=== PATIENT | male | born 1945 | race Caucasian/White ===

== ENCOUNTER 2017-12-12 12:50 | Emergency (ER) | payer MEDICARE ==
[2017-12-12] MEDS ORDERED: NS 0.9% 1000 ML* 2,000 ML IV ONE (13:05)
[2017-12-12] MEDS ORDERED: Ondansetron INJ* 2 MG/ML VIAL IV ONE (13:05)
--- NOTE | 2017-12-12 13:11 | ED ---
Syncope/Near Syncope - HPI Summary HPI Summary: This is nita Wright documenting for attending Teo Padilla MD. This patient is a 72 year old M [facility] accompanied by a male with a chief complaint of syncope that occurred around 11:00AM. Pt had LOC while the nursing area at the [facility] was measuring his vitals. Patient reports decreased appetite, watery diarrhea, dizziness, light-headedness, CORDOBA, nausea, seeing spots, shaking, and chills. Patient denies abd pain, bloody stool, or fever. Pt ate breakfast this morning, showered, did laundry, and attended two group classes. Pt reports he recently changed the timing of his medications. Pt has been sober for a month and a half. PMHx EtOH abuse. - History Of Current Complaint Chief Complaint: EDSyncope Time Seen by Provider: 12/12/17 12:55 Hx Obtained From: Patient Onset/Duration: Sudden Onset Timing: Minutes Context: Witnessed, Loss Of Consciousness Activity At Onset: Other - standing after rest Alleviating Factor(s): Spontaneous Resolution Associated Signs And Symptoms: Decreased Oral Intake, Diarrhea, Dizzy, Headache , Lightheadedness, Vomiting PMH/Surg Hx/FS Hx/Imm Hx History: Denies: Hx Dialysis Psychiatric History: Reports: Hx Substance Abuse - EtOH - Family History Known Family History: Positive: Other - EtOH abuse - Social History Alcohol Use: None Review of Systems Positive: Chills. Negative: Fever Eyes: Other - seeing spots Negative: Cough Positive: Vomiting, Diarrhea, Nausea. Negative: Abdominal Pain Negative: hematuria Positive: Headache, Weakness, Syncope All Other Systems Reviewed And Are Negative: Yes Physical Exam - Summary Physical Exam Summary: Appearance: Well-appearing, Well-nourished, lying in bed comfortably Skin: Warm, dry, no obvious rash Eyes: sclera anicteric, no conjunctival pallor ENT: mucous membranes moist, pharynx appears normal Neck: Supple, nontender Respiratory: Clear to auscultation, no signs of respiratory distress Cardiovascular: Normal S1, S2. No murmurs. Normal distal pulses in tibial and radial bilaterally. Abdomen: Soft, nontender, normal active bowel sounds present Musculoskeletal: Normal, Strength/ROM Intact Neurological: A&Ox3, awake and alert, mentation is normal, speech is fluent and appropriate Psychiatric: affect is normal, does not appear anxious or depressed Triage Information Reviewed: Yes Vital Signs Reviewed: Yes Diagnostics - Laboratory Result Diagrams: 12/12/17 13:13 12/12/17 13:13 Lab Statement: Any lab studies that have been ordered have been reviewed, and results considered in the medical decision making process. - EKG 13:09 Cardiac Rate: NL EKG Rhythm: Sinus Rhythm - 63 bpm EKG Interpretation: P waves, QRS complex, and T waves WNL. Int nml. No ischemic changes. Course/Dx Course Of Treatment: This is a 72-year-old man with a history of what sounds like vasovagal syncope following a illness character has been nausea, diarrhea, and poor by mouth intake. He has been observed here and given IV fluids and has not had for any further episodes and nor has he had any diarrhea. His laboratory studies other than a mildly elevated lactate consistent with dehydration are unremarkable. I do not believe his episode of syncope were presents an arrhythmia or other serious pathology. I believe he is stable for discharge at this point - Diagnoses Provider Diagnoses: Syncope, Dehydration, Diarrhea Discharge - Sign-Out/Discharge Documenting (check all that apply): Patient Departure - Discharge Plan Condition: Improved Disposition: HOME Patient Education Materials: Syncope (ED), Dehydration (ED) Referrals: No Primary Care Phys,NOPCP [Primary Care Provider] - [facility] [Outside] - If Needed - Billing Disposition and Condition Condition: IMPROVED Disposition: Home
[2017-12-12 13:31] LABS: ABS Basophils 0.1 10^3/ul (0-0.2); ABS Eosinophils 0.5 10^3/ul (0-0.6); ABS Lymphocytes 1.8 10^3/ul (1.0-4.8); ABS Monocytes 0.7 10^3/ul (0-0.8); ABS Neutrophils 6.2 10^3/ul (1.5-7.7); ABS Nucleated RBC 0 10^3/ul; Eosinophil % 5.7 % (0-6); Hematocrit 43 % (42-52); Hemoglobin 14.6 g/dl (14.0-18.0); Lymphocyte % 19.1 % (25-47); Mean Corpuscular HGB Conc 34 g/dl (31-36); Mean Corpuscular Hemoglobin 32 pg (27-31); Mean Corpuscular Volume 94 fL (80-94); Mean Platelet Volume 8.4 um3 (7.4-10.4); Nucleated Red Blood Cells % 0.1; Platelet Count 257 10^3/ul (150-450); Red Blood Count 4.52 10^6/ul (4.00-5.40); Red Cell Distribution Width 13 % (10.5-15); White Blood Count 9.3 10^3/ul (3.5-10.8)
[2017-12-12 13:53] LABS: EGFR Non-African American 57.3 (>60)
[2017-12-12 18:50] VITALS: BP 125/83
== END 2017-12-12 18:50 | disposition home or self-care (01) ==
LOC: ED 12:50
DX: R55 Syncope and collapse (principal); E86.0 Dehydration; R19.7 Diarrhea, unspecified
CPT/HCPCS: 36415; 80053; 83605; 83735; 84443; 84484; 85025; 93005; 99283; J2405